=== PATIENT | male | born 1995 | race Caucasian/White ===

== ENCOUNTER 2018-03-30 19:31 | Emergency (ER) | payer BC ==
[~2018-03-30] VITALS: Ht 175.3 cm; Wt 91.6 kg
[2018-03-30 19:37] VITALS: Ht 175.3 cm; Wt 91.6 kg
[2018-03-30 20:38] VITALS: BP 125/87
== END 2018-03-30 20:38 | disposition home or self-care (01) ==
LOC: ED 19:31
DX: J45.901 Unspecified asthma with (acute) exacerbation (principal)
CPT/HCPCS: J2930; J7620; Q0092